=== PATIENT | female | born 1990 | race African-American/Black ===

== ENCOUNTER 2020-10-08 11:37 | Day surgery (SDC) | payer OTHER, SELFPAY ==
[2020-10-08 12:30] VITALS: BMI 31.3
[2020-10-08] MEDS ORDERED: hydrALAZINE 20 MG/ML VIAL SLOW IVP PRN (13:14)
== END 2020-10-08 13:10 | disposition home or self-care (01) ==
LOC: CSHLD/OP 11:37
PROVIDERS: ATTEND Obstetrics & Gynecology
DX: O36.8120 Decreased fetal movements, second trimester, not applicable or unspecified (principal); Z3A.21 21 weeks gestation of pregnancy
CPT/HCPCS: 99282

== ENCOUNTER 2021-01-24 23:58 | Day surgery (SDC) | payer OTHER ==
[2021-01-25] MEDS ORDERED: hydrALAZINE 20 MG/ML VIAL SLOW IVP PRN (01:28)
== END 2021-01-25 02:15 | disposition home or self-care (01) ==
LOC: CSHLD/OP 23:58
PROVIDERS: ATTEND Obstetrics & Gynecology
DX: O47.03 False labor before 37 completed weeks of gestation, third trimester (principal); Z3A.36 36 weeks gestation of pregnancy
CPT/HCPCS: 99282

== ENCOUNTER 2021-02-05 07:29 | Outpatient (CLI) | payer OTHER ==
[2021-02-05 16:17] LABS: SARS-CoV-2 PCR NAA for Saliva Not Detected (NotDetected)
== END 2021-02-05 07:30 | disposition home or self-care (01) ==
LOC: CSHLAB 07:29
PROVIDERS: ATTEND Obstetrics & Gynecology
DX: Z20.822 Contact with and (suspected) exposure to COVID-19 (principal)
CPT/HCPCS: U0003; U0005

== ENCOUNTER 2021-02-09 06:36 | Inpatient (IN) | payer OTHER ==
[2021-02-09] MEDS ORDERED: HYDROcodone/Acetaminophen 5/325 mg Tablet PO PRN (07:21)
[2021-02-09] MEDS ORDERED: Lidocaine 1% (PF) 30 ML VIAL SC PRN (07:21)
[2021-02-09] MEDS ORDERED: Promethazine HCl 25 MG/ML VIAL IM PRN ×2 (07:21→23:33)
[2021-02-09] MEDS ORDERED: Carboprost 250 MCG/ML AMP IM PRN (07:21)
[2021-02-09] MEDS ORDERED: Butorphanol Tartrate 1 MG/ML VIAL SLOW IVP PRN (07:21)
[2021-02-09] MEDS ORDERED: Diphenoxylate HCl/Atropine Tablet PO PRN ×2 (07:21)
[2021-02-09] MEDS ORDERED: hydrALAZINE 20 MG/ML VIAL SLOW IVP PRN ×2 (07:21→23:33)
[2021-02-09] MEDS ORDERED: Methylergonovine 0.2 MG/ML VIAL IM PRN ×2 (07:21→23:33)
[2021-02-09] MEDS ORDERED: Acetaminophen 500 MG TAB PO PRN (07:21)
[2021-02-09] MEDS ORDERED: Ibuprofen 800 MG TAB PO PRN (07:21)
[2021-02-09] MEDS ORDERED: Ondansetron PF 4 MG/2 ML Vial IVP PRN ×2 (07:21→23:33)
[2021-02-09] MEDS ORDERED: Misoprostol 200 MCG TAB PR PRN (07:21)
[2021-02-09] MEDS ORDERED: Misoprostol 200 MCG TAB PO PRN (07:24)
[2021-02-09] MEDS ORDERED: NS w/ Oxytocin 30 units 500 ML IV SCH ×2 (07:30→23:33)
[2021-02-09] MEDS ORDERED: NS w/ Oxytocin 30 units 500 ML IVPB SCH (07:30)
[2021-02-09 08:44] LABS: Hemoglobin 7.9 g/dL (12.0-15.5); Mean Corpuscular HGB CONC 30.4 g/dL (32.0-36.0); Mean Corpuscular Hemoglobin 23.3 pg (27.0-33.0); Mean Corpuscular Volume 76.7 fl (81.6-98.3); RBC Distribution Width 15.3 % (11.5-14.5); Red Blood Cell (RBC) Count 3.39 10x6/uL (3.90-5.03); White Blood Cell (WBC) Count 10.3 10x3/uL (3.5-10.5)
[2021-02-09 08:51] LABS: Mean Platelet Volume 12.7 fl (7.4-10.4); Platelet Count 185 10x3/uL (150-450)
[2021-02-09 09:14] VITALS: BMI 34.3
[2021-02-09 09:17] LABS: HIV (1/2) Antibody/Antigen Non-Reactive (NonReactive); Hep B Surf Ag Non-Reactive S/CO (NonReactive)
[2021-02-09 09:18] LABS: HBSAg Index 0.15 S/CO (0-0.99)
[2021-02-09 09:19] LABS: Syphilis Antibody Nonreactive (Nonreactive); Syphilis Antibody Index 0.03 S/CO (<1.00 Non-Reactive)
[2021-02-09] MEDS: NS w/ Oxytocin 30 units 500 ML IV SCH ×2 (10:38→23:17)
[2021-02-09] MEDS: Lactated Ringer's 1,000 ML IV SCH ×2 (10:38→19:48)
[2021-02-09] MEDS ORDERED: Fentanyl 2 mcg/Bup 0.1% Cadd 100 ML ONE (13:57)
[2021-02-09] MEDS ORDERED: Bupivacaine 0.25% HCL 30 ML VIAL ONE (14:27)
[2021-02-09] MEDS ORDERED: Calcium Carbonate 500 MG ChewTAB PO PRN (17:51)
[2021-02-09] MEDS ORDERED: diphenhydrAMINE 50 MG/ML VIAL ONE (17:58)
[2021-02-09] MEDS ORDERED: Milk Of Magnesia 30 ML UDCUP PO PRN (23:33)
[2021-02-09] MEDS ORDERED: Misoprostol 200 MCG TAB VAG PRN (23:33)
[2021-02-09] MEDS ORDERED: diphenhydrAMINE 25 MG CAP PO PRN (23:33)
[2021-02-09] MEDS ORDERED: Preparation H Ointment 28 GM TUBE PR PRN (23:33)
[2021-02-09] MEDS ORDERED: Lanolin Ointment 7 GM TUBE TOP PRN (23:33)
[2021-02-09] MEDS ORDERED: Bisacodyl 10 MG SUPP PR PRN (23:33)
[2021-02-09] MEDS ORDERED: Zolpidem Tartrate 5 MG TAB PO PRN (23:33)
[2021-02-09] MEDS ORDERED: Benzocaine-Menthol 82.5 ML CAN TOP PRN (23:33)
[2021-02-10] MEDS: Lactated Ringer's 1,000 ML IV SCH (00:21)
[2021-02-10] MEDS: Docusate Calcium (SURFAK) 240 MG CAP PO SCH (00:30)
[2021-02-10] MEDS: Ibuprofen 800 MG TAB PO SCH ×3 (00:30→18:04)
[2021-02-10] MEDS: HYDROcodone/Acetaminophen 5/325 mg Tablet PO PRN ×3 (00:31→14:42)
[2021-02-10] MEDS: Ferrous Sulfate 325 MG TAB PO SCH ×2 (08:49→18:04)
[2021-02-10] MEDS: Prenatal Vitamin 1 TAB PO SCH (08:50)
[2021-02-10] MEDS ORDERED: Varicella virus, LIVE 0.5 ML VIAL SC ONE (09:00)
[2021-02-10] MEDS ORDERED: Boostrix 0.5 ML (Tdap) VIAL IM ONE (09:00)
[2021-02-10] MEDS ORDERED: Measles/Mumps/Rubella 10 MCG/0.5 ML VIAL SC ONE (09:00)
[2021-02-10 09:03] LABS: Hemoglobin 7.9 g/dL (12.0-15.5); Mean Corpuscular HGB CONC 29.4 g/dL (32.0-36.0); Mean Corpuscular Hemoglobin 23.5 pg (27.0-33.0); Mean Corpuscular Volume 80.1 fl (81.6-98.3); Red Blood Cell (RBC) Count 3.36 10x6/uL (3.90-5.03); White Blood Cell (WBC) Count 20.8 10x3/uL (3.5-10.5)
[2021-02-11] MEDS: Docusate Calcium (SURFAK) 240 MG CAP PO SCH (00:05)
[2021-02-11] MEDS: Ibuprofen 800 MG TAB PO SCH ×2 (00:09→08:37)
[2021-02-11] MEDS: HYDROcodone/Acetaminophen 5/325 mg Tablet PO PRN (05:43)
[2021-02-11 07:52] VITALS: TEMP 98.1
[2021-02-11] MEDS: Prenatal Vitamin 1 TAB PO SCH (08:37)
[2021-02-11] MEDS: Ferrous Sulfate 325 MG TAB PO SCH (08:37)
[2021-02-11] MEDS ORDERED: Docusate Calcium (SURFAK) 240 MG CAP PO SCH (09:00)
[2021-02-11 09:40] VITALS: BP 134/69
== END 2021-02-11 11:00 | disposition home or self-care (01) | DRG 807 ==
LOC: CSHLD 06:36 → UNDOADMIN 06:36 → EEVIPCON 06:36 → CSHPP 02-10 00:10
PROVIDERS: ADMIT Obstetrics & Gynecology; ATTEND Obstetrics & Gynecology
PROC: 10E0XZZ Delivery of Products of Conception, External Approach (ICD-10-PCS; principal; 2021-02-09)
DX: O36.8130 Decreased fetal movements, third trimester, not applicable or unspecified (principal); Z37.0 Single live birth; Z3A.39 39 weeks gestation of pregnancy
CPT/HCPCS: 36415; 85027; 86780; 86850; 86900; 86901; 87340; 87389; J0595; J1200; J2590; J7120